=== PATIENT | female | born 1980 | race Two or more races ===

== ENCOUNTER 2022-05-11 11:38 | Emergency (ER) | payer MEDICAID ==
[~2022-05-11] VITALS: Ht 157.5 cm; Wt 98.9 kg
--- NOTE | 2022-05-11 12:02 | NUR ---
[id number] C/O SYNCOPE AT 1030AM WITNESSED BY FAMILY MEMBER AT HOME. NO HEAD OR NECK INJURY. PT TAKEN TO BED AND PUT ON MONITOR.
--- NOTE | 2022-05-11 12:15 | NUR ---
TARGET PROTECTION SPECIALIST AT BEDSIDE.
--- NOTE | 2022-05-11 12:20 | NUR ---
NET DEVELOPER ARCHITECT ARRIVAL
--- NOTE | 2022-05-11 12:22 | NUR ---
PHYSICIAN AT BEDSIDE
--- NOTE | 2022-05-11 12:23 | NUR ---
TELE-NEUROLOGY ACTIVATED
--- NOTE | 2022-05-11 12:23 | NUR ---
CODE STROKE ACTIVATION
--- NOTE | 2022-05-11 12:25 | NUR ---
PT TO CT
--- NOTE | 2022-05-11 12:27 | NUR ---
GLUCOSE 287. PT HAS LEFT FLOOR TO GO TO CT
[2022-05-11] MEDS ORDERED: IOHEXOL-350 100 ML VIAL IV ONE (12:28)
[2022-05-11] MEDS ORDERED: IV NS 0.9% 250 ML IV ONE (12:28)
--- NOTE | 2022-05-11 12:28 | NUR ---
NURSING CARGO SERVICE SUPERVISOR ARRIVAL
[2022-05-11 12:30] LABS: BASOPHILS # (AUTO) 0.1 K/uL (0.0-0.2); BASOPHILS % (AUTO) 0.6 % (0.0-2.0); HEMATOCRIT 49 % (33-45); HEMOGLOBIN 16.2 g/dL (11.5-14.8); LYMPHOCYTES # (AUTO) 1.8 K/uL (0.8-4.8); LYMPHOCYTES % (AUTO) 22.1 % (20.0-44.0); MEAN CORPUSCULAR HGB CONC 33 g/dl (31.0-36.0); MEAN CORPUSCULAR VOLUME 89 fL (82-100); MONOCYTES # (AUTO) 0.5 K/uL (0.1-1.30); MONOCYTES % (AUTO) 6.5 % (2.0-12.0); NEUTROPHILS # (AUTO) 5.3 K/uL (1.8-8.9); NEUTROPHILS % (AUTO) 65.8 % (43.0-81.0); PLATELET COUNT (AUTO) 300 K/uL (150-450); RED BLOOD CELL COUNT(AUTO) 5.52 MIL/uL (4.0-5.2); WHITE BLOOD COUNT (AUTO) 8.1 K/uL (4.3-11.0)
--- NOTE | 2022-05-11 12:37 | NUR ---
NIHSS COMPLETION, SCORE 3
[2022-05-11 12:39] LABS: CALCIUM, SERUM 8.7 mg/dL (8.5-10.1); CARBON DIOXIDE 24 mmol/L (21-32); CHLORIDE 101 mmol/L (98-107); CREATININE 0.8 mg/dL (0.6-1.3); GLUCOSE 270 mg/dL (74-106); POTASSIUM 3.3 mmol/L (3.5-5.1); SODIUM SERUM 137 mmol/L (136-145); UREA NITROGEN, BLOOD 9 mg/dL (7-18)
--- NOTE | 2022-05-11 12:42 | NUR ---
PT BACK FROM CT.
[2022-05-11 12:44] LABS: ALANINE AMINOTRANSFERASE 71 U/L (12-78); ALBUMIN 3.9 g/dL (3.4-5.0); ALKALINE PHOSPHATASE 123 U/L (46-116); ASPARTATE AMINOTRANSFERASE 94 U/L (15-37); BILIRUBIN,DIRECT 0.1 mg/dL (0.0-0.2); BILIRUBIN,TOTAL 0.6 mg/dL (0.2-1.0); TOTAL PROTEIN, SERUM 7.5 g/dL (6.4-8.2)
--- NOTE | 2022-05-11 12:47 | NUR ---
NEUROLOGIST CONTACTED, DR. MAT ROSENTHAL
[2022-05-11] MEDS ORDERED: METF-440 PO (13:03)
[2022-05-11] MEDS ORDERED: METO100T14 PO (13:03)
[2022-05-11] MEDS ORDERED: LOSARTAN (13:03)
[2022-05-11] MEDS ORDERED: AMLO-213 PO (13:03)
--- NOTE | 2022-05-11 13:12 | NUR ---
cLINICALS FAXED TO [facility] Addendum: 05/11/22 at 1313 by MAURICE [phone]
--- NOTE | 2022-05-11 13:16 | NUR ---
COVID SWAB DONE BY NURSE ARMIDA
--- NOTE | 2022-05-11 13:17 | NUR ---
BOLUS ALTEPASE GIVEN IVP.
--- NOTE | 2022-05-11 13:17 | NUR ---
ALTEPLASE ADMINISTERED
--- NOTE | 2022-05-11 13:18 | NUR ---
ALTEPLASE DRIP STARTED.
[2022-05-11] MEDS ORDERED: ALTEPLASE BOLUS DOSE IV ONE (13:30)
[2022-05-11] MEDS ORDERED: LABETALOL HCL IV 100MG VIAL ONE (13:58)
--- NOTE | 2022-05-11 13:58 | NUR ---
ADMITTING DR. DR LANDON, ETA IS [id number]
[2022-05-11] MEDS ORDERED: WATER FOR INJECTION STERILE IV ONE (14:00)
[2022-05-11] MEDS ORDERED: LABETALOL HCL IV 100MG VIAL IV PRN (14:00)
[2022-05-11] MEDS ORDERED: ALTEPLASE IV ONE (14:00)
--- NOTE | 2022-05-11 14:00 | NUR ---
SWALLOW TEST COMPLETED, PT PASSED
--- NOTE | 2022-05-11 15:03 | NUR ---
REPORT GIVEN TO MONIE BALBUENA AT [facility]. REPORT GIVEN TO [place] WITH [facility].
[2022-05-11 15:26] VITALS: BP 135/92
== END 2022-05-11 15:28 | disposition short-term general hospital (02) ==
LOC: ER 12:01
DX: I63.9 Cerebral infarction, unspecified (principal); G81.94 Hemiplegia, unspecified affecting left nondominant side; R29.705 NIHSS score 5; I10 Essential (primary) hypertension; Z79.899 Other long term (current) drug therapy; Z20.822 Contact with and (suspected) exposure to COVID-19
CPT/HCPCS: 99291; 70498; 96365; 71045; 87426; 93005 ×2; 70496; 85025; 80048; 80076; 84703; 36415; 84484; 85730; 82962; 70450; J2997 ×2; J7050; Q9967; C9803; J3490